=== PATIENT | male | born 1950 | race Caucasian/White ===

== ENCOUNTER 2021-03-21 11:16 | Emergency (ER) | payer OTHER ==
[~2021-03-21] VITALS: Ht 165.1 cm; Wt 106.1 kg
[~2021-03-21 11:16] MED LIST: ASPIRIN EC81 M1 PO; KEFLEX500 MG PO; LIPITOR40 MG PO; MICARDIS40 MG; PLAVIX 75 MG TA75 M1 PO; TOPROL XL25 MG PO
[2021-03-21] MEDS ORDERED: COZAAR 25 MG TA25 M1 PO (11:21)
[2021-03-21] MEDS ORDERED: CEPHALEXIN500 MG PO (13:32)
[2021-03-21 13:44] VITALS: BP 175/70
== END 2021-03-21 13:45 | disposition home or self-care (01) ==
LOC: M.ERS 11:16
DX: S61.412A Laceration without foreign body of left hand, initial encounter (principal); E78.00 Pure hypercholesterolemia, unspecified; I25.2 Old myocardial infarction; Z95.5 Presence of coronary angioplasty implant and graft; Z79.899 Other long term (current) drug therapy; Z79.82 Long term (current) use of aspirin; W32.0XXA Accidental handgun discharge, initial encounter; Y93.H9 Activity, other involving exterior property and land maintenance, building and construction; Y92.89 Other specified places as the place of occurrence of the external cause; Y99.8 Other external cause status